=== PATIENT | female | born 1980 | race Caucasian/White ===

== ENCOUNTER 2017-10-13 09:50 | Outpatient (CLI) | payer OTHER | END 2017-10-13 10:01 | disposition home or self-care (01) | LOC: LAB 09:50 | DX: Z01.419 Encounter for gynecological examination (general) (routine) without abnormal findings (principal); N92.6 Irregular menstruation, unspecified; E55.9 Vitamin D deficiency, unspecified; N30.00 Acute cystitis without hematuria; R10.2 Pelvic and perineal pain ==

== ENCOUNTER 2017-10-13 11:05 | Outpatient (CLI) | payer OTHER | END 2017-10-13 11:13 | disposition home or self-care (01) | LOC: MAMO-SONO 11:05 | DX: Z12.31 Encounter for screening mammogram for malignant neoplasm of breast (principal); N60.19 Diffuse cystic mastopathy of unspecified breast ==

== ENCOUNTER 2017-10-31 15:16 | Outpatient (CLI) | payer OTHER | END 2017-10-31 15:18 | disposition home or self-care (01) | LOC: LAB 15:16 | DX: Z01.419 Encounter for gynecological examination (general) (routine) without abnormal findings (principal); N92.6 Irregular menstruation, unspecified; E55.9 Vitamin D deficiency, unspecified; N30.00 Acute cystitis without hematuria; R10.2 Pelvic and perineal pain ==

== ENCOUNTER 2019-01-30 09:14 | Outpatient (CLI) | payer OTHER | END 2019-01-30 09:19 | disposition home or self-care (01) | LOC: SONOGRAMA 09:14 → MAMO-SONO 09:15 → SONOGRAMA 09:19 | DX: N94.4 Primary dysmenorrhea (principal) ==

== ENCOUNTER 2021-01-12 11:10 | Outpatient (CLI) | payer OTHER | END 2021-01-12 11:20 | disposition home or self-care (01) | LOC: MAMO-SONO 11:10 | PROVIDERS: ATTEND Obstetrics & Gynecology | DX: N60.19 Diffuse cystic mastopathy of unspecified breast (principal); Z12.31 Encounter for screening mammogram for malignant neoplasm of breast ==